=== PATIENT | male | born 1950 | race Caucasian/White ===

== ENCOUNTER 2023-04-14 16:19 | Outpatient (OUT) | payer MEDICARE, SELFPAY ==
[2023-04-14 17:33] LABS: Prostate Specific Antigen Dx 3.97 ng/mL (<=4.00)
== END 2023-04-14 16:20 | disposition home or self-care (01) ==
LOC: LAB 16:29
PROVIDERS: PCP Internal Medicine; Visit Provider Urology
DX: R97.20 Elevated prostate specific antigen [PSA] (principal)
CPT/HCPCS: 36415; 84153

== ENCOUNTER 2023-11-09 09:16 | Outpatient (OUT) | payer MEDICARE, SELFPAY ==
[2023-11-10 08:13] LABS: PSA, Free 0.88 ng/mL; Prostate Specific Ag 4.4 ng/mL (0.0-4.0)
== END 2023-11-09 09:17 | disposition home or self-care (01) ==
LOC: LAB 09:18
PROVIDERS: PCP Internal Medicine; Visit Provider Urology
DX: R97.20 Elevated prostate specific antigen [PSA] (principal)
CPT/HCPCS: 36415; 84153; 84154

== ENCOUNTER 2024-05-18 12:33 | Outpatient (OUT) | payer MEDICARE, SELFPAY ==
[2024-05-19 08:13] LABS: PSA, Free 0.73 ng/mL; Prostate Specific Ag 3.7 ng/mL (0.0-4.0)
== END 2024-05-18 12:34 | disposition home or self-care (01) ==
LOC: LAB 12:33
PROVIDERS: PCP Internal Medicine; Visit Provider Urology
DX: R97.20 Elevated prostate specific antigen [PSA] (principal)
CPT/HCPCS: 36415; 84153; 84154